=== PATIENT | male | born 1985 | race African-American/Black ===

== ENCOUNTER 2017-05-25 10:39 | Emergency (ER) | payer BC ==
[~2017-05-25] VITALS: Ht 175.3 cm; Wt 63.5 kg
[2017-05-25 10:40] VITALS: BP_SYST 139
--- NOTE | 2017-05-25 10:40 | NUR ---
BROUGHT BACK TO BED #8 AND TRIAGED, REPORT GIVEN TO SAIMA
--- NOTE | 2017-05-25 10:50 | NUR ---
Pt states that his headache started 3 ago, mostly concentrated behind his eyes. Pain level 8/10 . Pt denies that anything provoked this headached. Pt stated that he had diarrhea and n/v this am after drinking [place] Juice. No signs of injury or complaints of distress. Will continue to monitor.
[2017-05-25] MEDS ORDERED: ACETAMINOPHEN 500 MG TABLET PO ONE (11:00)
--- NOTE | 2017-05-25 11:09 | NUR ---
ER Dr. Hollingsworth at bedside examining patient.
[2017-05-25] MEDS ORDERED: KETOROLAC TROMETHAMINE 60 MG/2 ML VIAL IM ONE (11:15)
--- NOTE | 2017-05-25 11:35 | NUR ---
rcv report from CELIA Hernandez; pt resting comfortably in bed; Toradol given earlier for 11/03 headached; will reassess and continue to monitor
[2017-05-25 12:05] VITALS: BP_SYST 105
--- NOTE | 2017-05-25 12:05 | NUR ---
Patient given written and verbal discharge instructions and verbalizes understanding. ER MD discussed with patient the results and treatment provided. Patient in stable condition. ID arm band removed. Rx of Motrin, Keflex, [place], and Bactrim given. Patient educated on pain management and to follow up with PMD within 2-3days. Pain Scale 5/10; tolerable and requires no further interventions at this time; pt and MD agreeable to discharge home. Opportunity for questions provided and answered. Medication side effect fact sheet provided.
== END 2017-05-25 12:05 | disposition home or self-care (01) ==
LOC: SED 10:39
DX: R51 Headache (principal); L03.90 Cellulitis, unspecified
CPT/HCPCS: 96372; 99283; J1885